=== PATIENT | female | born 1970 | race Caucasian/White ===

== ENCOUNTER 2020-02-23 15:12 | Emergency (ER) | payer BC ==
[2020-02-23] MEDS ORDERED: Prochlorperazine 10 MG in Sodium Chloride 0.9% 50 ML IV ONE (16:12)
[2020-02-23] MEDS ORDERED: Sodium Chloride 0.9% 10 ML Syringe FLUSH PRN (16:12)
[2020-02-23] MEDS ORDERED: Ketorolac 30 MG/ML SDV IVPUSH ONE (16:12)
[2020-02-23] MEDS ORDERED: diphenhydrAMINE 50 MG/ML SDV IVPUSH ONE (16:12)
[2020-02-23] MEDS ORDERED: Sodium Chloride 0.9% 1,000 ML IV SCH (16:15)
[2020-02-23] MEDS ORDERED: diphenhydrAMINE 50 MG/ML SDV ONE (16:34)
[2020-02-23] MEDS ORDERED: Ketorolac 30 MG/ML SDV ONE (16:35)
[2020-02-23] MEDS ORDERED: Prochlorperazine 10 MG/2 ML SDV ONE (16:53)
--- NOTE | 2020-02-23 17:08 | EDM.PDOC ---
ED HPI GENERAL MEDICAL PROBLEM - General Chief Complaint: Neuro Symptoms/Deficits Stated Complaint: NEW ONSITE LOSS OF VISION Time Seen by Provider: 02/23/20 15:45 Source of Information: Reports: Patient, RN Notes Reviewed History Limitations: Reports: No Limitations - History of Present Illness INITIAL COMMENTS - FREE TEXT/NARRATIVE: This patient presents to the ED for evaluation of visual changes. She states she was working at her computer when she started having episodes in which her vision "went in and out" and she started having black spots in her visual bhandari. She also had a headache with some dizziness at the time. She denies any LOC or syncope. She denies any numbness, tingling, or feelings of weakness. She states she sustained a significant concussion approximately 1 year ago and since that time has had headaches nearly every day. She uses OTC pain relievers or [place] when the headaches are more severe. She denies any nausea or vomiting. She denies photophobia and states that the "in and out" visual changes are continuing. Onset: Today, Sudden Onset Date: 02/23/20 Onset Time: 15:00 Duration: Chronic, Constant Location: Reports: Head (across frontal area from roman catholic to roman catholic) Quality: Reports: Ache, Sharp, Throbbing Severity: Moderate Improves with: Reports: Medication Context: Reports: Activity Associated Symptoms: Reports: Nausea/Vomiting, Other (photo/phono phobia). Denies: Confusion, Chest Pain, Fever/Chills, Shortness of Breath, Syncope, Weakness Headache Pain Score (Numeric/FACES): 5 - Related Data Allergies Allergy/AdvReac Type Severity Reaction Status Date / Time No Known Allergies Allergy Verified 02/23/20 16:23 Home Meds: Home Meds Hydrocodone/Acetaminophen [Hydrocodon-Acetaminophen 5-325] 1 each PO Q6HR PRN [History] ED ROS GENERAL - Review of Systems Review Of Systems: Comprehensive ROS is negative, except as noted in HPI. ED EXAM, NEURO - Physical Exam Exam: See Below Exam Limited By: No Limitations General Appearance: Alert, Mild Distress Eye Exam: Bilateral Eye: PERRL Ears: Normal External Exam Nose: Normal Inspection Throat/Mouth: Normal Inspection, Normal Oropharynx Head Exam: Atraumatic, Normocephalic Neck: Normal Inspection, Full Range of Motion Respiratory/Chest: No Respiratory Distress, Lungs Clear, Normal Breath Sounds, No Accessory Muscle Use Cardiovascular: Regular Rate, Rhythm Neurological: Alert, Normal Mood/Affect, No Motor/Sensory Deficits, Oriented x 3 Extremities: Normal Inspection Psychiatric: Normal Affect, Normal Mood Skin Exam: Warm, Dry, Intact, Normal Color, No Rash Course - Vital Signs Last Recorded V/S: Last Vital Signs Temp 36.2 C 02/23/20 15:20 Pulse 64 02/23/20 15:20 Resp 16 02/23/20 15:20 BP 123/85 02/23/20 15:20 Pulse Ox 99 02/23/20 15:20 - Orders/Labs/Meds Orders: Active Orders 24 hr Category Date Time Status Head wo Cont [CT] Stat Exams 02/23/20 15:22 Taken Sodium Chloride 0.9% [Normal Saline] 1,000 ml Med 02/23/20 16:15 Active IV ASDIRECTED Sodium Chloride 0.9% [Saline Flush] Med 02/23/20 16:12 Active 10 ml FLUSH ASDIRECTED PRN Saline Lock Insert [OM.PC] Stat Oth 02/23/20 16:12 Ordered Medication Orders Sodium Chloride (Normal Saline) 1,000 mls @ 1,000 mls/hr IV ASDIRECTED ALAN Last Admin: 02/23/20 16:23 Dose: 1,000 mls/hr Sodium Chloride (Saline Flush) 10 ml FLUSH ASDIRECTED PRN PRN Reason: Keep Vein Open Meds: Medications Generic Name Dose Route Start Last Admin Trade Name Freq PRN Reason Stop Dose Admin Sodium Chloride 1,000 mls @ 1,000 mls/hr 02/23/20 16:15 02/23/20 16:23 Normal Saline IV 1,000 mls/hr ASDIRECTED ALAN Administration Sodium Chloride 10 ml 02/23/20 16:12 Saline Flush FLUSH ASDIRECTED PRN Keep Vein Open Discontinued Medications Generic Name Dose Route Start Last Admin Trade Name Freq PRN Reason Stop Dose Admin Diphenhydramine HCl 25 mg 02/23/20 16:12 02/23/20 16:28 Benadryl IVPUSH 02/23/20 16:13 25 mg ONETIME ONE Administration Diphenhydramine HCl Confirm 02/23/20 16:34 02/23/20 16:35 Benadryl Administered 02/23/20 16:35 Not Given Dose 50 mg .ROUTE .STK-MED ONE Prochlorperazine Edisylate 10 52 mls @ 150 mls/hr 02/23/20 16:12 02/23/20 17: 05 mg/ Sodium Chloride IV 02/23/20 16:32 150 mls/hr ONETIME ONE Administration Ketorolac Tromethamine 30 mg 02/23/20 16:12 02/23/20 16:31 Toradol IVPUSH 02/23/20 16:13 30 mg ONETIME ONE Administration Ketorolac Tromethamine Confirm 02/23/20 16:35 02/23/20 17:06 Toradol Administered 02/23/20 16:36 Not Given Dose 30 mg .ROUTE .STK-MED ONE Lorazepam Confirm 02/23/20 17:48 Ativan Administered 02/23/20 17:49 Dose 2 mg .ROUTE .STK-MED ONE Prochlorperazine Edisylate Confirm 02/23/20 16:53 02/23/20 17:06 Compazine Administered 02/23/20 16:54 Not Given Dose 10 mg .ROUTE .STK-MED ONE - Re-Assessments/Exams Free Text/Narrative Re-Assessment/Exam: 02/23/20 17:14 This patient presents to the ED with a report of visual field changes and a headache. The examination was found to be normal; history and clinical findings seem most consistent with a migraine headache. Given her report of nearly daily headaches since her concussion, I suspect this to be a post-concussive syndrome. There was a non-focal neurologic exam and no signs concerning to infectious etiologies. Clinically the life threatening diagnosis of SAH and meningitis/encephalitis were excluded. I also had no concerns for metabolic disorders which may produce a headache. A head CT was negative for acute findings. She was given a prescription for Imitrex for her headaches. I also encouraged her to follow up with her PCP and discuss a neurologic consult. She was reminded to return immediately if any worsening or new symptoms develop. She was in complete understanding and agreement with this plan and at the time of discharge had no further concerns or complaints. 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 Drink plenty of fluids and get plenty of rest. Follow up in clinic as needed. Call with any questions. Sepsis Event Note (ED) - Focused Exam Vital Signs: Vital Signs Temp Pulse Resp BP Pulse Ox 02/23/20 15:20 36.2 C 64 16 123/85 99 - My Orders Last 24 Hours: My Active Orders 02/23/20 15:22 Head wo Cont [CT] Stat 02/23/20 16:12 Sodium Chloride 0.9% [Saline Flush] 10 ml FLUSH ASDIRECTED PRN Saline Lock Insert [OM.PC] Stat 02/23/20 16:15 Sodium Chloride 0.9% [Normal Saline] 1,000 ml IV ASDIRECTED - Assessment/Plan Last 24 Hours: My Active Orders 02/23/20 15:22 Head wo Cont [CT] Stat 02/23/20 16:12 Sodium Chloride 0.9% [Saline Flush] 10 ml FLUSH ASDIRECTED PRN Saline Lock Insert [OM.PC] Stat 02/23/20 16:15 Sodium Chloride 0.9% [Normal Saline] 1,000 ml IV ASDIRECTED
[2020-02-23] MEDS ORDERED: LORazepam 2 MG/ML SDV IVPUSH ONE (17:40)
[2020-02-23] MEDS ORDERED: LORazepam 2 MG/ML SDV ONE (17:48)
--- NOTE | 2020-02-24 07:36 | CT ---
DATE OF SERVICE: 02/23/20 CLINICAL DATA: sudden onset loss of vision UNENHANCED BRAIN CT: Multislice axial acquisition without IV contrast was performed. Comparison is made to a prior exam dated 12/03/18. No masses or mass effect. No intracranial hemorrhage. No evidence of acute or subacute infarct. No osseous abnormalities. IMPRESSION: No acute intracranial abnormalities. [id number] [facility]
== END 2020-02-23 17:52 | disposition home or self-care (01) ==
LOC: LB.ED 15:12
DX: G43.909 Migraine, unspecified, not intractable, without status migrainosus (principal)
CPT/HCPCS: 70450; 96361; 96365; 96375; 99284; J0780; J1200; J1885; J2060; J7030; J7050; 99283